=== PATIENT | female | born 1965 | race Caucasian/White ===

== ENCOUNTER 2019-02-17 22:53 | Emergency (ER) | payer BC | END 2019-02-18 00:48 | disposition home or self-care (01) | LOC: ERS 22:53 | DX: S20.462A Insect bite (nonvenomous) of left back wall of thorax, initial encounter (principal); E11.9 Type 2 diabetes mellitus without complications; E78.5 Hyperlipidemia, unspecified; Z79.899 Other long term (current) drug therapy; Z79.84 Long term (current) use of oral hypoglycemic drugs; W57.XXXA Bitten or stung by nonvenomous insect and other nonvenomous arthropods, initial encounter | CPT/HCPCS: 99282 ==

== ENCOUNTER 2020-02-15 14:00 | Inpatient (IN) | payer BC, OTHER ==
--- NOTE | 2020-02-15 14:55 | RAD ---
Chest AP view INDICATION: Chest palpitations and chest pain COMPARISON: None FINDINGS: Lungs: The lungs are clear Cardiac silhouette: The cardiomediastinal silhouette appears within normal limits. Pulmonary vasculature: Normal Pleural spaces: No pleural effusion or pneumothorax is demonstrated. Upper abdomen: No abnormality seen. Osseous structures: No acute osseous abnormality. Additional findings: None. IMPRESSION: No acute cardiopulmonary abnormality.
[2020-02-15 14:56] LABS: #Eosinphils 0.3 thou/uL (0.0-0.7); #Lymphocytes 1.9 thou/uL (1.20-3.40); #Monocytes 0.5 thou/uL (0.11-0.59); #Neutrophils 3.7 thou/uL (1.40-6.50); %Basophils 0.6 % (0.0-1.0); %Eosinophils 4.8 % (0.0-10.0); %Lymphocytes 29.3 % (21.0-51.0); %Monocytes 7.4 % (0.0-10.0); Hemoglobin 13.3 g/dL (12.0-16.0); Mean Corpuscular HGB CONC 34.6 g/dL (32.0-36.0); Mean Corpuscular Hemoglobin 28.7 pg (27.0-31.0); Mean Corpuscular Volume 82.8 fL (78.0-98.0); Mean Platelet Volume 6.4 fL (7.4-10.4); Platelet Count 165 thou/uL (130-400); RBC Distribution Width 12.2 % (11.5-14.5); Red Blood Cell (RBC) Count 4.63 mill/uL (4.20-5.40); White Blood Cell (WBC) Count 6.4 thou/uL (4.8-10.8)
[2020-02-15 15:13] LABS: ALT (SGPT) 43 U/L (8-55); AST (SGOT) 23 U/L (5-34); Albumin 4.1 g/dL (3.5-5.0); Alkaline Phosphatase 79 U/L (40-110); Anion Gap 17 mmol/L (10-20); BUN (Urea Nitrogen) 14 mg/dL (9.8-20.1); Bilirubin, Total 0.4 mg/dL (0.2-1.2); CK (CPK) 68 U/L (29-168); Calc. Creatinine Clearance 0 mL/min (70-130); Calcium 8.5 mg/dL (7.8-10.44); Carbon Dioxide 25 mmol/L (22-29); Chloride 104 mmol/L (98-107); Globulin 2.9 g/dL (2.4-3.5); Glucose 191 mg/dL (70-105); Lipase 78 U/L (8-78); Potassium 3.8 mmol/L (3.5-5.1); Sodium 142 mmol/L (136-145)
--- NOTE | 2020-02-15 16:03 | ULT ---
ULTRASOUND DOPPLER DUPLEX VENOUS LEFT LOWER EXTREMITY: DATE: 02/15/2020 HISTORY: 55-year-old female with left lower extremity pain TECHNIQUE: Grayscale, color-flow, and spectral analysis, of major veins of left lower extremity. FINDINGS: There is demonstration of blood flow with normal compressibility, of the left common femoral, profund a femoral, greater saphenous, femoral, popliteal, and posterior tibial, veins. IMPRESSION: Negative. No deep venous thrombosis of left lower extremity.
[2020-02-15] MEDS ORDERED: Aspirin Chewable 81 MG TAB ONE (17:08)
[2020-02-15 19:02] LABS: Troponin I Less than 0.010 ng/mL (< 0.028)
[2020-02-15] MEDS ORDERED: Dextrose 50% Abboject 50 ML SYRINGE SLOW IVP PRN (19:52)
[2020-02-15] MEDS ORDERED: Dextrose 5% in Water 1,000 ML IV PRN (19:52)
[2020-02-15] MEDS ORDERED: HumaLOG 300 UNITS/3 ML VIAL SC PRN ×2 (19:52)
[2020-02-15 20:12] VITALS: BMI 27.1
--- NOTE | 2020-02-15 20:55 | PDOC.HHP ---
Hospitalist HPI - History of Present Illness History of Present Illness: ADMISSION DATE: 02/15/2020 TIME OF ASSESSMENT: 1849 PRIMARY CARE PHYSICIAN: Sarah CHIEF COMPLAINT: Palpitations HPI: Patient is a 55-year-old female with past medical history significant for elevated cholesterol and diabetes mellitus type 2. She presents to the ER today after having heart palpitations on and off for 4 days. She discussed with her primary care physician who asked her to come in on the but patient wanted to try to get in with cardiology instead of making the ER visit. Today, however, the palpitations increased. She describes them as feeling like a hard heartbeat and fast which causes nausea and at other times it feels like butterflies in her chest. She does experience some right shoulder and shoulder blade pain with them. She also states that she has been having difficulty staying awake during the day so she has increased her caffeine intake some. She drinks a Slim fast energy for breakfast and then generally has tea with Stevia and a Dr. Pepper 6 ounce in the afternoon. The patient states that she has recently had a sleep study that showed she has moderate sleep apnea. She has a CPAP ordered which insurance just approved so she should be getting it soon. Patient also endorses difficulty lying flat at night and props herself using 2 pillows. She states that she has reflux when lying flat. Patient also presented to the ER for concerns of pain in her big toe, calf and, knee. She had concerns that she had a blood clot there as family members in the past have had blood clots. Denies any swelling or redness. ED COURSE: Vital Signs: Blood pressure 132/80, pulse 78, respiratory rate 16, no pain, O2 saturation 97% room air, 98.5 oral temperature Today in the ER they completed a chest x-ray, EKG, vascular ultrasound of the left lower extremity, and lab work. She was administered aspirin 324 mg oral. PAST MEDICAL HISTORY: Diabetes mellitus type 2, hyperlipidemia PAST SURGICAL HISTORY: Right arm surgery for carpal tunnel, hysterectomy SOCIAL HISTORY: Patient lives at home with her . She denies any alcohol, drug, tobacco use. FAMILY HISTORY: Multiple family members including her dad and sister have from [place]. Multiple family merged with hypertension diabetes mellitus type 2. ALLERGIES: Prednisone CURRENT MEDICATIONS: Metformin 1000 mg twice a day Atorvastatin 20 mg once a day Glipizide 5 mg twice a day Aspirin 81 mg every 3 daystakes every 3 days due to excessive bruising Hospitalist ROS - Review of Systems Cardiovascular: reports: palpitations Musculoskeletal: reports: leg pain (left) All other systems reviewed; all pertinent +/- noted in HPI/Subj - Exam General Appearance: NAD, awake alert Eye: PERRL Heart: RRR, no murmur, no gallops, no rubs, normal peripheral pulses Respiratory: CTAB, no wheezes, no rales, no ronchi, normal chest expansion Gastrointestinal: soft, non-tender, non-distended, normal bowel sounds Extremities - other findings: trace edema to R leg Skin: no rashes Neurological: no focal deficits Musculoskeletal: normal tone, no muscle wasting Psychiatric: normal affect, normal behavior Hospitalist Results - Labs Result Diagrams: 02/15/20 14:35 02/15/20 14:35 Lab results: WBC 6.4 thou/uL (4.8-10.8) 02/15/20 14:35 Hgb 13.3 g/dL (12.0-16.0) 02/15/20 14:35 Hct 38.3 % (36.0-47.0) 02/15/20 14:35 MCV 82.8 fL (78.0-98.0) 02/15/20 14:35 Plt Count 165 thou/uL (130-400) 02/15/20 14:35 Neutrophils % 58.0 % (42.0-75.0) 02/15/20 14:35 Sodium 142 mmol/L (136-145) 02/15/20 14:35 Potassium 3.8 mmol/L (3.5-5.1) 02/15/20 14:35 Chloride 104 mmol/L (98-107) 02/15/20 14:35 Carbon Dioxide 25 mmol/L (22-29) 02/15/20 14:35 BUN 14 mg/dL (9.8-20.1) 02/15/20 14:35 Creatinine 0.78 mg/dL (0.6-1.1) 02/15/20 14:35 Glucose 191 mg/dL (70-105) H 02/15/20 14:35 Calcium 8.5 mg/dL (7.8-10.44) 02/15/20 14:35 Total Bilirubin 0.4 mg/dL (0.2-1.2) 02/15/20 14:35 AST 23 U/L (5-34) 02/15/20 14:35 ALT 43 U/L (8-55) 02/15/20 14:35 Alkaline Phosphatase 79 U/L (40-110) 02/15/20 14:35 Creatine Kinase 68 U/L (29-168) 02/15/20 14:35 Troponin I Less than 0.010 ng/mL (< 0.028) 02/15/20 18:20 Serum Total Protein 7.0 g/dL (6.0-8.3) 02/15/20 14:35 Albumin 4.1 g/dL (3.5-5.0) 02/15/20 14:35 Lipase 78 U/L (8-78) 02/15/20 14:35 - EKG Interpretation EKG: 78bpm - Radiology Interpretation Chest x-ray Status: image reviewed by me, report reviewed by me Additional Comment: IMPRESSION: No acute cardiopulmonary abnormality. US - venous Status: report reviewed by me Additional Comment: FINDINGS: There is demonstration of blood flow with normal compressibility, of the left common femoral, profunda femoral, greater saphenous, femoral, popliteal, and posterior tibial, veins. IMPRESSION: Negative. No deep venous thrombosis of left lower extremity. Hospitalist H&P A/P - Plan Plan: Palpitations with chest pain Monitor patient on telemetry overnight Echo in a.m. Cardiology consultation pending Continue trend troponins, initial 2 are negative Diabetes mellitus type 2 Monitor Accu-Cheks AC at bedtime Mild sliding scale insulin Restart glipizide, hold Metformin at this time in case further interventions are needed Hyperlipidemia Restart home medications VTE prophylaxis in place with Lovenox CODE STATUS: Full Surrogate decision-maker is her , Juan
[2020-02-15] MEDS: glipiZIDE 5 MG TAB PO SCH (21:02)
[2020-02-15 21:27] LABS: Troponin I Less than 0.010 ng/mL (< 0.028)
[2020-02-16] MEDS ORDERED: Enoxaparin Sodium 40 MG/0.4 ML SYRINGE SC SCH (09:00)
[2020-02-16] MEDS ORDERED: FLUoxetine HCl 20 MG CAP PO SCH (09:00)
[2020-02-16] MEDS ORDERED: Aspirin 325 mg Enteric Coated Tablet PO SCH (09:00)
[2020-02-16] MEDS: glipiZIDE 5 MG TAB PO SCH (12:35)
--- NOTE | 2020-02-16 12:51 | NM ---
NM Cardiac Stress W EF WF History: Chest pain Comparison: None. Findings: Stress and rest performed after the intravenous administration of 27 and 9 mCi technetium 9 9m sestamibi intravenously. No scar or ischemia. Normal wall motion. Calculated ejection fraction is 72%. Impression: Normal nuclear medicine stress test.
[2020-02-16 15:24] VITALS: BP 109/67; TEMP 98.4
--- NOTE | 2020-02-16 16:18 | DIS ---
DATE OF ADMISSION: 02/15/2020 DATE OF DISCHARGE: 02/16/2020 DISCHARGE DISPOSITION: To home. PRIMARY DISCHARGE DIAGNOSIS: Palpitations with chest pain, resolved. SECONDARY DISCHARGE DIAGNOSES: Dyslipidemia, diabetes mellitus type 2, obstructive sleep apnea. PROCEDURES DONE DURING HOSPITALIZATION: Chest x-ray done showed no acute cardiopulmonary abnormality. Ultrasound venous Doppler of left lower extremity done showed no evidence of DVT. Nuclear stress test done showed no scar or ischemia, normal wall motion, calculated ejection fraction was 72%. Hemoglobin and hematocrit are 13 and 38, platelet count 165. Troponin x2 negative. DISCHARGE MEDICATIONS: 1. Aspirin 81 mg p.o. daily. 2. Glipizide 5 mg twice daily. 3. Metformin 1000 mg twice daily. 4. Fluoxetine 20 mg p.o. daily. DISCHARGE PLAN: The patient to follow up with her primary care physician, Dr. Sarah Bagley in 1 week. She needs to follow up with Dr. Messer in [address] Messer' office will send her event monitor to wear in the coming days. BRIEF COURSE DURING HOSPITALIZATION: The patient initially came to ER with complaints of ongoing palpitations from last 4 days, which were unrelated to exertion. These would last for less than a minute and the patient would develop chest pain as well at the end of it. In view of this history, the patient was placed under observation on telemetry. Two sets of troponin were negative. The patient's baseline EKG and telemetry did not reveal any arrhythmias. She has had a nuclear stress test done, which did not reveal any reversible ischemia. Dr. Messer, gre tutor's office will send her an event monitor to wear and she needs to follow up with them in 7 to 10 days. The patient also needs to follow up with her primary care physician in 1 week. She is hemodynamically stable and will be shortly discharged home. Prior to discharge, she is ambulating and eating well. Please note, I have seen and examined the patient on the day of discharge. Job ID: [id number]
== END 2020-02-16 17:00 | disposition home or self-care (01) | DRG 313 ==
LOC: ERS 14:00 → 2NO 18:00
PROVIDERS: ADMIT Family Medicine; ATTEND Internal Medicine
DX: R07.9 Chest pain, unspecified (principal); E11.9 Type 2 diabetes mellitus without complications; G47.33 Obstructive sleep apnea (adult) (pediatric); R00.2 Palpitations; E78.5 Hyperlipidemia, unspecified; Z90.710 Acquired absence of both cervix and uterus; Z79.84 Long term (current) use of oral hypoglycemic drugs; Z88.8 Allergy status to other drugs, medicaments and biological substances; Z79.82 Long term (current) use of aspirin
CPT/HCPCS: 36415; 36416; 71045; 78452; 80053; 82550; 83690; 84443; 84484; 85025; 93005; 93017; 93306; 94760; A9500; J1650

== ENCOUNTER 2022-05-12 14:51 | Outpatient (CLI) | payer OTHER ==
[2022-05-12 16:38] LABS: #Eosinphils 0.1 10x3/uL (0.0-0.5); #Monocytes 0.6 10x3/uL (0.0-1.1); #Neutrophils 4.5 10x3/uL (1.5-8.4); %Basophils 0.4 % (0.0-2.0); %Eosinophils 1.9 % (0.0-6.0); %Monocytes 8.1 % (0.0-10.0); %Neutrophils 61.5 % (40.0-75.0); Hemoglobin 13.6 g/dL (12.0-15.5); Mean Corpuscular HGB CONC 34.3 g/dL (32.0-36.0); Mean Corpuscular Hemoglobin 28.3 pg (27.0-33.0); Mean Corpuscular Volume 82.7 fl (81.6-98.3); Mean Platelet Volume 9.4 fl (7.4-10.4); Platelet Count 178 10x3/uL (150-450); RBC Distribution Width 12.9 % (11.5-14.5); White Blood Cell (WBC) Count 7.4 10x3/uL (3.5-10.5)
[2022-05-12 16:52] LABS: ALT (SGPT) 26 U/L (8-55); AST (SGOT) 18 U/L (5-34); Albumin 4.9 g/dL (3.5-5.0); Alkaline Phosphatase 74 U/L (40-110); Anion Gap 19 mmol/L (10-20); BUN (Urea Nitrogen) 10 mg/dL (9.8-20.1); Bilirubin, Total 0.7 mg/dL (0.2-1.2); Calc. Creatinine Clearance 0 mL/min (70-130); Calcium 9.9 mg/dL (7.8-10.44); Carbon Dioxide 23 mmol/L (22-29); Chloride 103 mmol/L (98-107); Estimated GFR 87; Globulin 2.8 g/dL (2.4-3.5); Glucose 120 mg/dL (70-105); Potassium 4.2 mmol/L (3.5-5.1); Protein, Total 7.7 g/dL (6.0-8.3); Sodium 141 mmol/L (136-145)
== END 2022-05-12 14:52 | disposition home or self-care (01) ==
LOC: LABBT 14:51
PROVIDERS: ATTEND Specialist
DX: Z01.818 Encounter for other preprocedural examination (principal); K80.20 Calculus of gallbladder without cholecystitis without obstruction
CPT/HCPCS: 80053; 85025; 93005; 93010

== ENCOUNTER 2022-05-18 06:57 | Day surgery (SDC) | payer OTHER ==
[2022-05-16 15:10] VITALS: BMI 26.4
[2022-05-18] MEDS ORDERED: Acetaminophen 500 MG TAB ONE (07:21)
[2022-05-18] MEDS ORDERED: Ketorolac Tromethamine 30 MG/ML VIAL ONE (07:21)
[2022-05-18] MEDS ORDERED: Bupivacaine/Epinephrine 0.25% 30 ML VIAL ONE (09:22)
[2022-05-18] MEDS ORDERED: FENTANYL 50 MCG/ML 1 ML VIAL ONE ×2 (09:28→10:53)
[2022-05-18] MEDS ORDERED: fentaNYL PF 100 MCG/2 ML SYRINGE ONE (09:29)
[2022-05-18] MEDS ORDERED: SUGAMMADEX SODIUM 200 MG/2 ML VIAL ONE (09:29)
[2022-05-18] MEDS ORDERED: Midazolam HCl 2 mg/2 ml Vial ONE (09:34)
[2022-05-18] MEDS ORDERED: CEFAZOLIN 2 GM VIAL ONE (09:36)
[2022-05-18] MEDS ORDERED: Sodium Chloride 0.9% 100 ML ONE (09:36)
[2022-05-18] MEDS ORDERED: PROPOFOL 200 MG/20 ML VIAL ONE (09:45)
[2022-05-18] MEDS ORDERED: Rocuronium Bromide 10 MG/ML (10ML VIAL) ONE (09:45)
[2022-05-18] MEDS ORDERED: Dexamethasone 20 MG/5 ML VIAL ONE (09:45)
[2022-05-18] MEDS ORDERED: Ondansetron PF 4 MG/2 ML Vial ONE (09:45)
[2022-05-18] MEDS ORDERED: Promethazine HCl 25 MG/ML VIAL IM PRN (10:10)
[2022-05-18] MEDS ORDERED: HYDROmorphone 2 MG/ML VIAL SLOW IVP PRN (10:10)
[2022-05-18] MEDS ORDERED: PACU-Morphine 4MG/ML VIAL SLOW IVP PRN (10:10)
[2022-05-18] MEDS ORDERED: Morphine Sulfate 2 MG/ML SYRINGE SLOW IVP PRN (10:10)
[2022-05-18] MEDS ORDERED: Ondansetron HCl/PF 4 MG/2 ML Vial IVP PRN (10:10)
[2022-05-18] MEDS ORDERED: HYDROcodone/Acetaminophen 5/325 mg Tablet ONE (12:53)
== END 2022-05-18 13:50 | disposition home or self-care (01) ==
LOC: SDC 06:57
PROVIDERS: ATTEND Specialist
PROC: 0FT44ZZ Resection of Gallbladder, Percutaneous Endoscopic Approach (ICD-10-PCS; principal; 2022-05-18)
DX: K80.10 Calculus of gallbladder with chronic cholecystitis without obstruction (principal); K76.0 Fatty (change of) liver, not elsewhere classified; E11.9 Type 2 diabetes mellitus without complications; H91.93 Unspecified hearing loss, bilateral; Z79.82 Long term (current) use of aspirin; Z79.84 Long term (current) use of oral hypoglycemic drugs; Z79.899 Other long term (current) drug therapy; Z88.4 Allergy status to anesthetic agent; Z88.7 Allergy status to serum and vaccine; Z88.8 Allergy status to other drugs, medicaments and biological substances; Z97.4 Presence of external hearing-aid
CPT/HCPCS: 88304; C1889; J1100; J1885; J2250; J2405; J2704; J3010; J3490

== ENCOUNTER 2024-01-03 07:25 | Emergency (ER) | payer OTHER, SELFPAY ==
[2024-01-03 08:18] LABS: #Basophils 0.03 10x3/uL (0.0-0.2); %Basophils 0.4 % (0.0-1.0); %Eosinophils 1.9 % (0.0-10.0); %Lymphocytes 19.2 % (21.0-51.0); %Monocytes 7.2 % (0.0-10.0); %Neutrophils 70.9 % (42.0-75.0); Hemoglobin 13.5 g/dL (12.0-16.0); Mean Corpuscular HGB CONC 34.6 g/dL (32.0-36.0); Mean Corpuscular Hemoglobin 28.7 pg (27.0-31.0); Mean Corpuscular Volume 82.8 fL (78.0-98.0); Mean Platelet Volume 8.5 fL (7.4-10.4); Platelet Count 147 10x3/uL (130-400); RBC Distribution Width 12.8 % (11.5-14.5); Red Blood Cell (RBC) Count 4.71 mill/uL (4.20-5.40)
[2024-01-03 08:43] LABS: Troponin I 0.014 ng/mL (< 0.028)
[2024-01-03 08:51] LABS: ALT (SGPT) 35 U/L (8-55); AST (SGOT) 30 U/L (5-34); Albumin 4.2 g/dL (3.5-5.0); Alkaline Phosphatase 70 U/L (40-110); Anion Gap 15 mmol/L (10-20); BUN (Urea Nitrogen) 12 mg/dL (9.8-20.1); Bilirubin, Total 0.6 mg/dL (0.2-1.2); Calc. Creatinine Clearance 0 mL/min (70-130); Calcium 9.2 mg/dL (7.8-10.44); Carbon Dioxide 24 mmol/L (22-29); Chloride 101 mmol/L (98-107); Estimated GFR 83; Globulin 2.7 g/dL (2.4-3.5); Glucose 176 mg/dL (70-105); Magnesium 1.7 mg/dL (1.6-2.6); Potassium 4.2 mmol/L (3.5-5.1); Protein, Total 6.9 g/dL (6.0-8.3); Sodium 136 mmol/L (136-145)
== END 2024-01-03 10:00 | disposition home or self-care (01) ==
LOC: ERS 07:25
DX: I47.10 Supraventricular tachycardia, unspecified (principal); I10 Essential (primary) hypertension; E11.9 Type 2 diabetes mellitus without complications; Z79.84 Long term (current) use of oral hypoglycemic drugs; Z79.82 Long term (current) use of aspirin; Z79.899 Other long term (current) drug therapy
CPT/HCPCS: 36415; 80053; 83735; 84484; 85025; 93005